=== PATIENT | male | born 1955 | race Caucasian/White ===

== ENCOUNTER 2023-11-01 08:57 | Outpatient (CLI) | payer MEDICARE | END 2023-11-01 08:58 | disposition home or self-care (01) | LOC: NM 08:57 | PROVIDERS: ATTEND Physician Assistant | DX: M17.11 Unilateral primary osteoarthritis, right knee (principal); Z96.651 Presence of right artificial knee joint; T84.032D Mechanical loosening of internal right knee prosthetic joint, subsequent encounter | CPT/HCPCS: 78315; A9503 ==

== ENCOUNTER 2025-03-11 07:44 | Outpatient (CLI) | payer MEDICARE | END 2025-03-11 07:45 | disposition home or self-care (01) | LOC: NM 07:44 | PROVIDERS: ATTEND Specialist | DX: Z47.1 Aftercare following joint replacement surgery (principal); T84.84XA Pain due to internal orthopedic prosthetic devices, implants and grafts, initial encounter; Z96.651 Presence of right artificial knee joint | CPT/HCPCS: 78315; A9503 ==